=== PATIENT | male | born 1990 | race Caucasian/White ===

== ENCOUNTER 2021-07-09 16:55 | Emergency (ER) | payer OTHER ==
[2021-07-09] MEDS ORDERED: Ketorolac 30 MG/ML SDV IM ONE (17:24)
[2021-07-09 18:24] VITALS: BP 147/97; PULSE 78
== END 2021-07-09 18:35 | disposition home or self-care (01) ==
LOC: FB.ED 16:55
DX: M94.0 Chondrocostal junction syndrome [Tietze] (principal)
CPT/HCPCS: 93005; 96372; 99284; J1885